=== PATIENT | male | born 1985 | race Two or more races ===

== ENCOUNTER 2024-12-20 11:17 | Emergency (ER) | payer OTHER ==
[~2024-12-20] VITALS: Ht 177.8 cm; Wt 88.5 kg
[2024-12-20 11:34] VITALS: BP 126/84; O2SAT 100
[2024-12-20] MEDS ORDERED: LOSARTAN POTASS50 MG (11:34)
[2024-12-20] MEDS ORDERED: ORPHENADRINE CITRATE 30 MG/ML AMPUL IM ONE (12:00)
[2024-12-20] MEDS ORDERED: KETOROLAC TROMETHAMINE 60 MG VIAL IM ONE ×2 (12:00→12:17)
[2024-12-20] MEDS ORDERED: ORPHENADRINE CITRATE 30 MG/ML AMPUL ONE (12:16)
== END 2024-12-20 15:21 | disposition home or self-care (01) ==
LOC: ER 11:33
DX: M54.50 Low back pain, unspecified (principal); M62.830 Muscle spasm of back; I10 Essential (primary) hypertension